=== PATIENT | female | born 1955 | race Caucasian/White ===

== ENCOUNTER 2016-06-09 09:29 | Outpatient (CLI) | payer BC ==
--- NOTE | 2016-06-09 11:41 | DIAGNOSTIC IMAGING REPORT ---
PROCEDURE: MG BILATERAL SCREENING W/CAD INDICATION: Screening. Reported history of left benign biopsy (06/2012). No family history. TECHNIQUE: Bilateral CC and MLO digital views. COMPARISON: Comparison is made to bilateral mammogram from the [facility] (10/15/2014), and prior studies from [facility] (left mammogram 05/02/2013, screening mammogram (04/23/2013). FINDINGS: Computer-aided detection applied. Moderately dense parenchymal pattern. There is a surgical marker in the lower outer left breast (no change). IMPRESSION: 1. Negative mammogram. RESULT CODE: 1- Negative. A. A negative report should not delay biopsy if a dominant or clinically suspicious mass is present. 10-15% of cancers are not identified by x-ray. B. A negative report may reinforce clinical impression. C. Adenosis and dense breasts may obscure an underlying neoplasm. D. False positive reports average 6-10%. E.. A yearly screening mammogram is recommended. A reminder letter will be scheduled.
--- NOTE | 2016-06-09 11:41 | DIAGNOSTIC IMAGING REPORT ---
PROCEDURE: MG BILATERAL SCREENING W/CAD INDICATION: Screening. Reported history of left benign biopsy (06/2012). No family history. TECHNIQUE: Bilateral CC and MLO digital views. COMPARISON: Comparison is made to bilateral mammogram from the [facility] (10/15/2014), and prior studies from [facility] (left mammogram 05/02/2013, screening mammogram (04/23/2013). FINDINGS: Computer-aided detection applied. Moderately dense parenchymal pattern. There is a surgical marker in the lower outer left breast (no change). IMPRESSION: 1. Negative mammogram. RESULT CODE: 1- Negative. A. A negative report should not delay biopsy if a dominant or clinically suspicious mass is present. 10-15% of cancers are not identified by x-ray. B. A negative report may reinforce clinical impression. C. Adenosis and dense breasts may obscure an underlying neoplasm. D. False positive reports average 6-10%. E.. A yearly screening mammogram is recommended. A reminder letter will be scheduled.
== END 2016-06-09 23:00 | disposition home or self-care (01) ==
LOC: MAM SRH 09:29
DX: Z12.31 Encounter for screening mammogram for malignant neoplasm of breast (principal)